=== PATIENT | male | born 1955 | race Caucasian/White ===

== ENCOUNTER 2016-07-23 14:08 | Emergency (ER) | payer MEDICARE, OTHER ==
[2016-07-23] MEDS ORDERED: OPTIRAY 350 100 ML VIAL HMH IV ONE (14:09)
[2016-07-23] MEDS ORDERED: ONDANSETRON 4 MG VIAL ONE (18:06)
[2016-07-23] MEDS ORDERED: SODIUM CHLORIDE 0.9% 1,000 ML ONE (18:07)
[2016-07-23] MEDS ORDERED: MORPHINE 4 MG/ML SYR ONE (18:07)
== END 2016-07-23 22:06 | disposition home or self-care (01) ==
LOC: ER 14:08
CPT/HCPCS: 74177 ×2; 96361 ×2; 96374 ×2; 96375 ×2; 99285; J2270; J2405; Q9967